=== PATIENT | male | born 1975 | race Caucasian/White ===

== ENCOUNTER → 2025-06-28 07:46 | Outpatient (BNVA) | payer OTHER, SELFPAY | PROVIDERS: Family Provider Family Medicine; PCP Family Medicine; Visit Provider Family Medicine | DX: Z13.6 Encounter for screening for cardiovascular disorders (principal); Z13.1 Encounter for screening for diabetes mellitus; Z12.5 Encounter for screening for malignant neoplasm of prostate; E55.9 Vitamin D deficiency, unspecified; R53.81 Other malaise; R53.83 Other fatigue; Z51.81 Encounter for therapeutic drug level monitoring | CPT/HCPCS: 80053; 80061; 82306; 83036; 84153; 84443; 85025 ==